=== PATIENT | female | born 2000 | race Caucasian/White ===

== ENCOUNTER 2023-02-21 21:42 | Emergency (ER) | payer OTHER ==
[~2023-02-21] VITALS: Ht 154.9 cm; Wt 64.0 kg
[2023-02-21 21:53] VITALS: BP 138/87
[2023-02-21] MEDS ORDERED: DOCUSATE SODIU250 MG PO (22:38)
[2023-02-21] MEDS ORDERED: NICORETTE4 M1 BC (22:38)
[2023-02-21] MEDS ORDERED: TRI-LO-SPRINTE1 EACH PO (22:38)
== END 2023-02-21 23:15 | disposition home or self-care (01) ==
LOC: ER 21:42
DX: S60.022A Contusion of left index finger without damage to nail, initial encounter (principal); S63.611A Unspecified sprain of left index finger, initial encounter; W23.0XXA Caught, crushed, jammed, or pinched between moving objects, initial encounter; J45.909 Unspecified asthma, uncomplicated
CPT/HCPCS: 73140